=== PATIENT | male | born 1950 | race Caucasian/White ===

== ENCOUNTER 2022-01-04 07:26 | Outpatient (CLI) | payer MEDICARE | END 2022-01-04 07:27 | disposition home or self-care (01) | LOC: BICCT 07:26 | PROVIDERS: ATTEND Urology | DX: N40.1 Benign prostatic hyperplasia with lower urinary tract symptoms (principal); N28.1 Cyst of kidney, acquired; K57.30 Diverticulosis of large intestine without perforation or abscess without bleeding; N21.0 Calculus in bladder | CPT/HCPCS: 74177; 82565 ==